=== PATIENT | male | born 2000 | race Caucasian/White ===

== ENCOUNTER 2025-02-06 12:54 | Inpatient (IN) | payer OTHER ==
[2025-02-06 13:31] VITALS: BMI 24.1
[2025-02-06] MEDS ORDERED: BENZOCAINE/MENTHOL (CHLORASEPTIC ) LOZENGE MM PRN (13:51)
[2025-02-06] MEDS ORDERED: ACETAMINOPHEN 325 MG TABLET (FP) PO PRN (13:51)
[2025-02-06] MEDS ORDERED: POLYETHYLENE GLYCOL (HEALTHYLAX) 3350 17 GM PACKET PO PRN (13:51)
[2025-02-06] MEDS ORDERED: guaiFENesin 600 MG TABLET.ER (FP) PO PRN (13:51)
[2025-02-06] MEDS ORDERED: LOPERAMIDE HCL 2 MG CAPSULE PO PRN (13:51)
[2025-02-06] MEDS ORDERED: NALOXONE (NARCAN) HCL 4 MG/0.1 ML SPRAY NS PRN (13:51)
[2025-02-06] MEDS ORDERED: chlordiazePOXIDE HCL 25 MG CAPSULE PO PRN (13:51)
[2025-02-06] MEDS ORDERED: BISMUTH SUBSALICYLATE 262 MG/15 ML BTL PO PRN (13:51)
[2025-02-06] MEDS ORDERED: hydrOXYzine PAMOATE 25 MG CAPSULE (FP) PO PRN (13:51)
[2025-02-06] MEDS ORDERED: MAG HYDROX/AL HYDROX/SIMETH 30 ML UNIT-DOSE CUP PO PRN (13:51)
[2025-02-06] MEDS ORDERED: BENZONATATE 200 MG CAPSULE PO PRN (13:51)
[2025-02-06] MEDS ORDERED: IBUPROFEN 600 MG TABLET (FP) PO PRN (13:51)
[2025-02-06] MEDS ORDERED: ONDANSETRON *ODT* 4 MG TABLET SL PRN (13:51)
[2025-02-06] MEDS ORDERED: MAGNESIUM HYDROX 2400MG/30ML ORAL SUSPENSION 30 ML CUP PO PRN (13:51)
[2025-02-06] MEDS ORDERED: DICYCLOMINE HCL 10 MG CAPSULE PO PRN (13:51)
[2025-02-06] MEDS ORDERED: METHOCARBAMOL 500 MG TABLET PO PRN (13:51)
[2025-02-06] MEDS ORDERED: IBUPROFEN 400 MG TABLET (FP) PO PRN (13:51)
[2025-02-06] MEDS: PRENATAL VITAMINS W/ FOLIC ACID TABLET (FP) PO SCH (14:58)
[2025-02-06] MEDS: chlordiazePOXIDE HCL 25 MG CAPSULE PO SCH (17:17)
[2025-02-06] MEDS: levETIRAcetam 500 MG TABLET (FP) PO SCH (22:20)
[2025-02-06] MEDS: THIAMINE 100 MG TABLET PO SCH (22:20)
[2025-02-06] MEDS: MELATONIN 5 MG TABLETS PO SCH (22:21)
[2025-02-07] MEDS: ACAMPROSATE CALCIUM 333 MG TABLET.DR PO SCH (09:37)
[2025-02-07 11:48] LABS: HEMATOCRIT 48.6 % (40.1-51.0); HEMOGLOBIN 16.2 g/dL (13.7-17.5); MCHC 33.3 g/dl (32.3-36.5); MEAN CELL VOLUME 90.8 fl (79.0-92.2); MEAN PLT VOLUME 10.4 fl (9.4-12.4); PLATELET COUNT 253 x10^3/uL (163-337); RDW 12.6 % (11.9-15.3)
[2025-02-07 12:08] LABS: POTASSIUM 3.6 mmol/L (3.5-5.1)
[2025-02-07 12:11] LABS: ALBUMIN 4.5 g/dl (3.4-5.0)
[2025-02-07 12:14] LABS: CREATININE 0.8 mg/dL (0.55-1.3)
[2025-02-07 12:16] LABS: BILIRUBIN,TOTAL 2.5 mg/dL (0.2-1); TOT PROT 8.3 g/dl (6.4-8.2)
[2025-02-08] MEDS: chlordiazePOXIDE HCL 25 MG CAPSULE PO SCH (05:36)
[2025-02-08] MEDS: LACTULOSE 20 GM/30 ML UDC (FOR ORAL USE ONLY) PO SCH (13:54)
[2025-02-09] MEDS ORDERED: chlordiazePOXIDE HCL 10 MG CAPSULE PO PRN
[2025-02-09] MEDS: chlordiazePOXIDE HCL 10 MG CAPSULE PO SCH (05:56)
[2025-02-09] MEDS: NICOTINE POLACRILEX 2 MG LOZENGE BC PRN (18:06)
[2025-02-09 20:49] VITALS: RESP 16
[2025-02-10] MEDS: chlordiazePOXIDE HCL 10 MG CAPSULE PO SCH (05:58)
[2025-02-11] MEDS: chlordiazePOXIDE HCL 10 MG CAPSULE PO ONE (05:20)
[2025-02-11 06:33] VITALS: BP 111/76; PULSE 68; TEMP 98.2
== END 2025-02-11 09:31 | disposition home or self-care (01) | DRG 775 ==
LOC: YASAS 12:54 → Y6N 14:19
PROVIDERS: ADMIT Allergy & Immunology; ATTEND Family Medicine Addiction Medicine
PROC: HZ2ZZZZ Detoxification Services for Substance Abuse Treatment (ICD-10-PCS; principal; 2025-02-06)
DX: F10.230 Alcohol dependence with withdrawal, uncomplicated (principal); F12.20 Cannabis dependence, uncomplicated; F32.A Depression, unspecified; E72.20 Disorder of urea cycle metabolism, unspecified; Z87.891 Personal history of nicotine dependence; Z86.19 Personal history of other infectious and parasitic diseases; Z91.410 Personal history of adult physical and sexual abuse; Z63.0 Problems in relationship with spouse or partner
CPT/HCPCS: 36415; 80053; 80305; 80307; 82140; 85027; 86780; 93005; 93010